=== PATIENT | male | born 1960 | race Caucasian/White ===

== ENCOUNTER → 2020-03-02 10:25 | Outpatient (CLI) | payer BC, SELFPAY ==
[2020-03-02 12:30] LABS: Absolute Lymphocyte Count 1.33 X10^3/uL (0.83-4.51); Absolute Neutrophil Count 2.1 X10^3/uL (2.0-7.7); Basophil# 0.05 X10^3/uL; Basophil% 1.2 % (0-1); Eosinophil# 0.15 X10^3/uL; Eosinophils% 3.7 % (0-5); Hematocrit 43.9 % (40-54); Hemoglobin 14.7 g/dL (13.0-16.5); Lymphocyte # 1.33 X10^3/ul (4.0); Lymphocyte % 33.2 % (19-41); Mean Corp Hgb Conc 33.5 g/dL (32-36); Mean Corpuscular Hgb 32.8 pg (27.0-32.0); Mean Platelet Vol. 10.7 fl (6.2-12.0); Monocyte# 0.37 X10^3/uL; Monocyte% 9.2 % (0-10); NRBC Flagged by Analyzer 0 % (0-5); Neutrophil % 52.5 % (47-70); Platelet Count 263 K/mm3 (150-450); RBC Distribution Width CV 12.2 % (11.6-14.6); RBC Distribution Width SD 43.9 fl (35.1-43.9); Red Blood Count 4.48 M/mm3 (4.6-6.2)
[2020-03-02 12:43] LABS: AST(SGOT) 62 U/L (15-37); Alanine Aminotransfer ALT/SGPT 96 U/L (16-61); Alkaline Phosphatase 98 U/L (45-117); Anion Gap 3 (5-15); BUN 15 mg/dL (7-18); BUN/Creat Ratio 12.7 RATIO (10-20); Bilirubin, Direct 0.18 mg/dL (0.00-0.30); Calcium,Total 9.4 mg/dL (8.5-10.1); Chloride 106 mmol/L (98-107); Creatinine, Serum 1.18 mg/dL (0.70-1.30); EST Glomerular Filtration Rate 67 mL/min (>60); Est Glom Filt Rate - Afr Amer 81 mL/min (>60); Globulin 3.6 g/dL (2.2-4.2); Glucose 101 mg/dL (74-106); Potassium 4.4 mmol/L (3.5-5.1); Protein, Total 7.6 g/dL (6.4-8.2); Sodium Level 139 mmol/L (136-145)
[2020-03-04 13:39] LABS: Hepatitis B Surface Antibody Non-Reactive; Hepatitis B Surface Antigen Non-Reactive (Nonreactive); Hepatitis C Antibody Non-Reactive (Nonreactive)
[2020-03-07 20:07] LABS: QNTFERON TB Mitogen Value > 10.00 IU/mL (.); QNTFERON TB Nil Value 0.06 IU/mL (.); QNTFERON TB1+ Ag Value 0.06 IU/mL (.); QNTFERON TB2+ Ag Value 0.05 IU/mL (.)
[2020-03-07 20:11] LABS: Hepatitis B Core Ab Total Negative (Negative); QNTIFERON TB Positive Criteria Negative (Negative)
== END ==
PROVIDERS: Referring Provider Dermatology; Visit Provider Dermatology
DX: L40.8 Other psoriasis (principal); L40.0 Psoriasis vulgaris
CPT/HCPCS: 36415; 80048; 80076; 85025; 86480; 86704; 86706; 86803; 87340

== ENCOUNTER → 2020-08-09 15:32 | Outpatient (CLI) | payer BC, SELFPAY ==
[2020-08-09 17:48] LABS: Absolute Lymphocyte Count 1.64 X10^3/uL (0.83-4.51); Absolute Neutrophil Count 2.8 X10^3/uL (2.0-7.7); Basophil# 0.03 X10^3/uL; Basophil% 0.6 % (0-1); Eosinophil# 0.17 X10^3/uL; Eosinophils% 3.4 % (0-5); Hematocrit 42.3 % (40-54); Hemoglobin 14.1 g/dL (13.0-16.5); Lymphocyte # 1.64 X10^3/ul (0.83-4.51); Lymphocyte % 32.3 % (19-41); Mean Corp Hgb Conc 33.3 g/dL (32-36); Mean Corpuscular Hgb 32.6 pg (27.0-32.0); Mean Corpuscular Volume 97.7 fL (80-94); Monocyte# 0.42 X10^3/uL; Monocyte% 8.3 % (0-10); NRBC Flagged by Analyzer 0 % (0-5); Neutrophil % 55.2 % (47-70); Platelet Count 204 K/mm3 (150-450); RBC Distribution Width SD 43.6 fl (35.1-43.9); Red Blood Count 4.33 M/mm3 (4.6-6.2); White Blood Count 5.1 K/mm3 (4.4-11.0)
[2020-08-09 18:01] LABS: ALB/GLOB Ratio 1.1 RATIO (0.9-2.4); AST(SGOT) 36 U/L (15-37); Alanine Aminotransfer ALT/SGPT 62 U/L (16-61); Albumin, Serum 3.8 g/dL (3.2-5.0); Alkaline Phosphatase 87 U/L (45-117); Anion Gap 5 (5-15); BUN 20 mg/dL (7-18); BUN/Creat Ratio 12.2 RATIO (10-20); Calcium,Total 9.1 mg/dL (8.5-10.1); Chloride 105 mmol/L (98-107); Creatinine, Serum 1.64 mg/dL (0.70-1.30); EST Glomerular Filtration Rate 46 mL/min (>60); Est Glom Filt Rate - Afr Amer 55 mL/min (>60); Globulin 3.4 g/dL (2.2-4.2); Glucose 110 mg/dL (74-106); Protein, Total 7.2 g/dL (6.4-8.2); Sodium Level 137 mmol/L (136-145)
== END ==
PROVIDERS: Referring Provider Dermatology; Visit Provider Dermatology
DX: L40.0 Psoriasis vulgaris (principal); Z79.899 Other long term (current) drug therapy
CPT/HCPCS: 36415; 80053; 85025